=== PATIENT | male | born 1980 | race Caucasian/White ===

== ENCOUNTER 2016-11-09 07:00 | Inpatient (IN) | payer OTHER ==
--- NOTE | ~2016-11-09 | DS ---
Unit #: [id number] #: [id number] Patient: KARAN ATKINSON [id number] [facility] [address] [place] [address] [id number] MR#: [id number] NAME: KARAN ATKINSON. ROOM: P179 Age: 36 Sex: M Admission Date: 11/09/2016 : 1980 Discharge Date: 11/11/2016 Attending Physician: Geoff Poole M.D. Primary Care Physician: Primary Care Physician No DISCHARGE SUMMARY IDENTIFYING DATA Mr. Atkinson is a 36-year-old white male, who was self-referred to the hospital. DISCHARGE DIAGNOSES Psychiatric: Bipolar disorder, most recent episode depressed, recurrent, moderate, without psychotic features. Opioid dependence, moderate. Methamphetamine dependence, moderate. Medical: None. Stressors: Moderate psychosocial stressors. HISTORY OF PRESENT ILLNESS Please see initial psychiatric evaluation for details. PAST PSYCHIATRIC HISTORY Please see initial psychiatric evaluation for details. PAST MEDICAL HISTORY Please see initial psychiatric evaluation for details. HOSPITAL COURSE The patient was admitted to the adult psychiatric and chemical dependency unit at [facility] and was oriented to the hospital environment. Routine p.r.n. medications were initiated, and once again, upon presentation, the patient was seen to be very agitated, irritable, aggressive, hostile, and inappropriate. However, he was started on the opioid detox protocol and was also started on Thorazine to help him with his agitation and aggression. However, he was seen to be showing very poor insight into his situation and was not cooperative with treatment recommendation and was not showing any motivation towards treatment and was very aggressive towards staff with abusive language and he was wanting to leave against medical advice and was not seen to be benefitting much from treatment and was denying suicidal ideations, intent or plan. He was not seen to be danger to self or anyone else, and as such, it was decided that he will be discharged and will continue treatment on an outpatient basis. DISCHARGE CONDITION Stable. PROGNOSIS Unit #: [id number] #: [id number] Patient: KARAN ATKINSON Guarded. Dictated by... Tank Palomo/ada TD: 11/21/2016 01:26 JOB #: [id number] DISCHARGE SUMMARY Page 1 of 1 X Geoff Poole MD DISCHARGE SUMMARY
--- NOTE | ~2016-11-09 | PN ---
Unit #: [id number] #: [id number] Patient: KARAN ATKINSON [id number] [facility] [address] [place] [address] [id number] I MR#: [id number] NAME: KARAN ATKINSON. ROOM: P179 Age: 36 Sex: M Admission Date: 11/09/2016 : 1980 Attending Physician: Geoff Poole M.D. Admitting Physician: Geoff Poole M.D. Primary Care Physician: Primary Care Physician Annelise CONNELLY PROGRESS NOTES DATE 11/11/2016 DISCUSSION Mr. Atkinson is a 36-year-old, white male with mood disorder, substance abuse who was seen today and chart was reviewed and case was discussed with the staff. He has been anxious (1) . he has been cooperative with treatment recommendations. He has been taking the medication and tolerating them fairly well. MENTAL STATUS EXAM Young white male who was casually dressed with fair personal hygiene, appears to be in no acute distress or discomfort. He was awake and alert on interaction with intact orientation. His mood was anxious with congruent affect. He denies any suicidal or homicidal ideation. Also, denies any auditory or visual hallucinations. His insight and judgement remains slightly impaired. TREATMENT PLAN 1. We will continue him on his current medications, level of precautions and treatment protocol. We will monitor his response and make further adjustments as needed. 2. We will continue to follow up. Dictated by... Tank Palomo/caleb TD: 11/12/2016 02:03 JOB #: [id number] Unit #: [id number] #: [id number] Patient: KARAN ATKINSON PROGRESS NOTES Page 1 of 1 X Geoff Poole MD PROGRESS NOTE
--- NOTE | ~2016-11-09 | PA ---
Unit #: [id number] #: [id number] Patient: KARAN BYERS [id number] [facility] [address] [place] [address] [id number] MR#: [id number] NAME: KARAN BYERS. ROOM: P179 Age: 36 Sex: M Admission Date: 11/09/2016 : 1980 Date of Assessment: 11/09/2016 Attending Physician: Geoff Poole M.D. Admitting Physician: Geoff Poole M.D. Primary Care Physician: Primary Care Physician No PSYCHIATRIC ASSESSMENT DATE OF SERVICE 11/09/2016, IDENTIFYING DATA Mr. Byers is a 36-year-old single white male, who is a resident of [place], [place], and is known to us from previous encounter and was transferred to us from [facility] Emergency Room. CHIEF COMPLAINT "IV heroin use and suicidal ideation." HISTORY OF PRESENT ILLNESS Mr. Byers is a 36-year-old white male with history of substance abuse and mood disorder, who presented to [facility] Emergency Room due to IV heroin use, suicidal ideations, paranoia, and depression and reported to ER staff that he felt like bugs and worms are coming out of his head "all the time for the past few years." He also reports auditory hallucination of a man talking to him and told the ER staff "I'm going to jump off the garage or walk in front of a car when we are done with this." He was seen to be unkempt, disheveled, disorganized with increasing depression, anxiety, agitation, irritability, paranoia, and delusional behavior as well as suicidal ideations with intent and plan and was seen to be a danger to self and others and as such, a recommendation for inpatient level of care for safety and stabilization was made and the patient was transferred to us. SUBSTANCE ABUSE HISTORY The patient reports a history of cannabis, opioids, methamphetamine, and benzodiazepine abuse, and reports that he has been using 1.5 g of IV heroin a day as well as using IV methamphetamine whenever he can get his hands on. PAST PSYCHIATRIC HISTORY The patient has had a [facility] and has a history of poor compliance with any form of outpatient treatment and once again has not been active in any treatment program, is not seeing a psychiatrist, and is not taking any psychotropic medications. PAST MEDICAL HISTORY Hepatitis C. ALLERGIES Unit #: [id number] #: [id number] Patient: KARAN BYERS No known medication allergies. CURRENT MEDICATIONS None. PERSONAL AND SOCIAL HISTORY A 36-year-old white male, who reports that he is single, unemployed, and essentially homeless and has poor social support system. MENTAL STATUS EXAMINATION Young white male, who was casually dressed with fair personal hygiene, appears to be in no acute distress or discomfort. He was awake and alert on interaction with intact orientation to time, place, and person. His mood was anxious and depressed with a congruent affect. His speech was slow and goal directed. He reports having suicidal ideations as well as auditory hallucinations and paranoid ideations. His insight and judgment remain significantly impaired. DIAGNOSTIC IMPRESSION Psychiatric: Major depressive disorder, recurrent, moderate, with psychosis; opioid dependence, moderate, in acute withdrawals; and methamphetamine dependence, moderate. Medical: Hepatitis C. Stressors: Moderate psychosocial stressors. TREATMENT PLAN 1. The patient has presented with a history of substance abuse and mood disorder and has been decompensating and will need inpatient hospitalization for detoxification, safety, and stabilization. We will start him back on his home medications and detox protocol will be initiated as well. 2. Supportive therapy was provided to the patient. 3. Safe, structured, and nourishing environment will be provided. ESTIMATED LENGTH OF STAY 4 to 5 days. ABILITY TO HELP SELF Limited. WILLINGNESS TO HELP SELF The patient appears to be willing to help self. STRENGTHS 1. Communicative. 2. Cooperative. PROBLEMS 1. Chronic chemical dependency. 2. Chronic dysphoric symptoms. 3. Poor social support system. DISCHARGE CRITERIA This will be contingent upon the patient's ability to go through detox without having any significant withdrawal symptoms as well as his ability to stay safe to himself and others, particularly after discharge from the hospital. Unit #: [id number] #: [id number] Patient: KARAN BYERS Dictated by... Tank Palomo/ada TD: 11/10/2016 13:56 JOB #: [id number] PSYCHIATRIC ASSESSMENT Page 1 of 1 X Geoff Poloe MD PSYCHIATRIC ASSESSMENT
--- NOTE | ~2016-11-09 | HP ---
Unit #: [id number] #: [id number] Patient: ERWIN BYERS [id number] [place] [address] [id number] I MR#: [id number] NAME: ERWIN BYERS. ROOM: P179 Age: 36 Sex: M Admission Date: 11/09/2016 : 1980 Attending Physician: Geoff Poole M.D. Admitting Physician: Geoff Poole M.D. Primary Care Physician: Primary Care Physician No HISTORY AND PHYSICAL HISTORY OF PRESENT ILLNESS Erwin is a 36-year-old male admitted on 11/09/2016 to [facility] for detox from heroin and Xanax. He also has been abusing ice and marijuana. Also has complaints of suicidal ideations reports he wants to be . PAST MEDICAL HISTORY Hepatitis C, withdrawal seizures and multiple kidney stones. PAST SURGICAL HISTORY Lithotripsy. SOCIAL HISTORY He smokes one pack of cigarettes daily. No alcohol use. He does report daily (1)___ use of heroin, ice, Xanax and marijuana. He is currently single and homeless. FAMILY HISTORY Noncontributory. REVIEW OF SYSTEMS CONSTITUTIONAL: No fever or chills. HEENT: Denies any sore throat, ear pain or runny nose. CARDIOVASCULAR: Denies chest pain, irregular heart rhythm or palpitations. CHEST: Denies shortness of breath or cough. No hemoptysis. GASTROINTESTINAL: Denies nausea, vomiting, diarrhea or chronic constipation. ENDOCRINE: Denies history of increased thirst or urination. No recent significant weight loss or gain. GENITOURINARY: Denies dysuria, frequency, or hematuria. SKIN: Denies any rashes. HEMATOLOGIC: Denies history of increased bleeding or bruising. MUSCULOSKELETAL: Denies any hot, swollen joints. No generalized muscle pain. NEUROLOGIC: Denies problems with vision or speech. No frequent, severe headaches. No numbness, tingling or weakness in any extremities. Denies loss of bladder or bowel control. CURRENT MEDICATIONS Please see medication reconciliation form in chart. ALLERGIES Unit #: [id number] #: [id number] Patient: ERWIN BYERS No known drug allergies. PHYSICAL EXAMINATION GENERAL: Alert, oriented, in no acute distress. VITAL SIGNS: Blood pressure 117/70, heart rate 99, respirations 15, temperature 97.6. SKIN: Warm and dry without rash or lesion. HEENT: Normocephalic. TMs not viewed. Oral and nasal passages clear. Conjunctivae clear. PERRLA. EOMs intact. NECK: Supple without lymphadenopathy or thyromegaly. HEART: Regular rate and rhythm without murmur. LUNGS: Clear. ABDOMEN: Soft, nontender, without masses or hepatosplenomegaly. : Not done. EXTREMITIES: No evidence of cyanosis, clubbing or edema. Moves all without focal deficit. NEUROLOGICAL: Grossly within normal limits. Cranial Nerves: II: Visual hummel are intact. III, IV AND : Extraocular movements are intact. Pupils are equal, round and reactive to light. V: Facial sensation is grossly normal. VII: Facial movements and expression are normal. VIII: Auditory acuity grossly intact. IX, X: Uvula is midline. Phonation is normal. XI: Patient shrugs shoulders and turns head normally. XII: Tongue protrudes in the midline. Sensory and Motor Function: Sensory and motor sensation is grossly normal. Motor: moves all extremities well. Coordination: Gait is normal. Deep Tendon Reflexes: Intact. IMPRESSION 1. Psychiatric admission. 2. Hepatitis C. 3. History Withdrawal seizures. 4. History of kidney stones. RECOMMENDATIONS Psychiatric, per psychiatrist. MEDICAL: I see no contraindications to participating in facility's activities. MEDICAL PROGNOSIS Good. MEDICAL CONDITION Stable. Dictated by... Pita Gilbert TD: 11/10/2016 02:59 JOB #: [id number] Unit #: [id number] #: [id number] Patient: ERWIN BYERS HISTORY AND PHYSICAL Page 1 of 1 X LILA ARAIZA APRN HISTORY AND PHYSICAL
[~2016-11-09 07:00] MED LIST: AL-MAG HYDROX-S30 M1 PO; BENTYL10 MG PO; CATAPRES0.1 M1 PO; FOLIC ACID1 MG PO; IBUPROFEN400 MG PO; IMODIUM2 MG PO; MAPAP325 M1 PO; MILK OF MAGNESIA PO; MULTI VITAMIN1 EACH PO; NEURONTIN600 MG PO; NICOTINE TRANSDE7 MG EXT; PHENERGAN25 MG; THIAMINE HCL100 MG PO; TRAZODONE HCL100 MG PO; ZOFRAN PO; ZYPREXA10 MG PO
[2016-11-10 09:30] LABS: BASOPHIL% 0.5 % (0-2.5); EOSINOPHIL# 0.4 X10e3 (0-0.7); EOSINOPHIL% 5.9 % (0.0-7.0); HEMATOCRIT 39.8 % (38.0-50.0); LYMPHOCYTE# 1.4 X10e3 (1.0-3.5); LYMPHOCYTE% 19.3 % (17.0-45.0); MEAN CELL VOLUME 80.9 FL (83-96); MEAN CORPUSCULAR HEMOGLOBIN 26.5 PG (28-34); MEAN CORPUSCULAR HGB CONC 32.7 g/dL (30-36); MEAN PLATELET VOLUME 7.6 FL (6.5-11.5); MONOCYTE# 0.8 X10e3 (0-1.0); MONOCYTE% 11.4 % (3.0-12.0); NEUTROPHIL# 4.4 X10e3 (1.5-7.1); NEUTROPHIL% 62.9 % (40-75); PLATELET COUNT 312 X10e3 (140-420); RED BLOOD COUNT 4.92 X10e (3.90-5.60); WHITE BLOOD COUNT 7.1 X10e3 (4.0-10.5)
[2016-11-10 09:46] LABS: DIFF IND NO
[2016-11-10 09:52] LABS: ALBUMIN SERUM 3.3 g/dL (3.5-5.0); BILIRUBIN,TOTAL 0.7 mg/dL (0.2-2.0); GLOM FILT RATE Estimated 95.1 mL/min (>60); PROTEIN TOTAL SERUM 6.8 g/dL (6.0-8.3)
== END 2016-11-11 13:00 | disposition left against medical advice (07) | DRG 885 ==
LOC: P1E 13:18
PROVIDERS: Psychiatry & Neurology Psychiatry
PROC: HZ2ZZZZ Detoxification Services for Substance Abuse Treatment (ICD-10-PCS; principal; 2016-11-09)
DX: F33.3 Major depressive disorder, recurrent, severe with psychotic symptoms (principal); F15.20 Other stimulant dependence, uncomplicated; R45.851 Suicidal ideations; F11.23 Opioid dependence with withdrawal; B19.20 Unspecified viral hepatitis C without hepatic coma; Z59.0 Homelessness; Z87.442 Personal history of urinary calculi; F17.210 Nicotine dependence, cigarettes, uncomplicated
CPT/HCPCS: 80053; 85025; 86592

== ENCOUNTER 2016-11-19 05:00 | Inpatient (IN) | payer OTHER ==
--- NOTE | ~2016-11-19 | A ---
[facility] Nutrition Therapy DATE: 11/21/16 Patient: KARAN Jin ZEESHAN Physician: ELOISE Address: NO PERMANENT ADDRESS Room/Bed: [address], Zip: [place] [address] Admit Date: 11/19/16 Date of : [birth year] Height: 5 8 Weight: 149 68.0388 NUTRITIONAL ASSESSMENT: REASON: UNINTENTIONAL WEIGHT LOSS PATIENT ADMITTED FOR SI AND POLYSUBSTANCE ABUSE PMH: HEP C, WITHDRAWAL SEIZURES Anthropometrics: HT: 5'8" WT: 150#, BMI: 2.8, %IBW: 97 Labs: NO NEW LABS AVAILABLE Meds: THORAZINE, DETOX PROTOCOL Assessment: PATIENT IS A 36 Y/O MALE ADMITTED FOR SI AND POLYSUBSTANCE ABUSE. PATIENT IS CURRENTLY UNEMPLOYED, HOMELESS, SMOKES 1/2 PPD, HAS DAILY HEROIN AND METH USE, AND OCCASIONAL MARIJUANA AND XANAX USE. PATIENT HAS A HX OF INPATIENT PSYCH HOSPITALIZATION AND HE WAS RECENTLY D/C'D FROM THIS FACILITY ON 09/11/16, WHICH HE LEFT AMA. PER NEEDS ASSESSMENT PATIENT STATED A POOR APPEITE WITH A 3# WEIGHT LOSS X LAST SEVERAL WEEKS, AND HE HAS ONLY BEEN SLEEPING AN AVG OF 3HRS/NIGHT. WEIGHT HX PER MEDITECH SHOWS NO WEIGHT CHANGE SINCE LAST ADMIT 2 WEEKS AGO, AND A 7# WEIGHT GAIN X 1 YEAR. NURSING REPORTS POOR PO INTAKES UPON ADMIT, BUT APPETITE HAS BEEN IMPROVING AND HE HAD GOOD PO INTAKES YESTERDAY. IT IS NOTED THAT PATIENT HAS BEEN REFUSING MEDS AT TIMES SINCE ADMIT, AND HE HAS BEEN DEMANDING, DISRUPTIVE, ENTITLED, AND HAS BEEN HAVING AGGRESSIVE BEHAVIORS. PATIENT IS ON A REGULAR DIET WITH NO CAFFEINE AND HE RECEIVES ENSURE TID. PATIENT'S BMI IS WITHIN A HEALTHY RANGE AND HE IS 97% OF HIS IBW. Dx: NO NUTRITION DX Intervention: REGULAR DIET, MEDS PER MD, DETOX, PSYCH Monitoring, Evaluation and Goals: 1. ADEQUATE PO INTAKES >50% OF MEALS 2. PREVENT, CORRECT MICRO/MACRO NUTRIENT DEFICIENCIES MONITOR: WEIGHTS, LABS, PO/FLUID INTAKES Recommendations: 1. CONTINUE REGULAR DIET TOLERATED. OFFER SNACKS BETWEEN MEALS. RECOMMEND TO DECREASE ENSURE TO QD OR BID D/T NO NUTRITIONAL NEED FOR INCREASED CALORIC INTAKES 2. ENCOURAGE ADEQUATE PO AND FLUID INTAKES [facility] Nutrition Therapy DATE: 11/21/16 Patient: KARAN Jin ZEESHAN Physician: ELOISE Address: NO PERMANENT ADDRESS Room/Bed: 12-1 [facility], [facility], Zip: [place] [address] Admit Date: 11/19/16 Date of : [birth year] Height: 5 8 Weight: [address] TO F/U PER PROTOCOL AND PRN R/T PATIENT NOT AT NUTRITIONAL RISK ATT Respectfully, ANDERS ORTIZ RD, LD [facility] cc: client file
--- NOTE | ~2016-11-19 | DS ---
Unit #: [id number] #: [id number] Patient: [facility]INSON [id number] [facility] [address] [place] [address] [id number] I MR#: [id number] NAME: KARAN ATKINSON. ROOM: P112 Age: 36 Sex: M Admission Date: 11/19/2016 : 1980 Discharge Date: 11/22/2016 Attending Physician: Geoff Poole M.D. Primary Care Physician: Lauren Hudson Aprn DISCHARGE SUMMARY IDENTIFYING DATA Mr. Atkinson is a 36-year-old single white male, who is a resident of [place], [place], and is known to us from previous encounter, was recently discharged from my care after he decided to leave against medical advice. However, he once again brought him back to the hospital as a transfer from [facility], where he presented with suicide attempt stating "I want to . I want to jump off a bridge." DISCHARGE DIAGNOSES Psychiatric: Bipolar disorder, most recent episode depressed, recurrent, moderate, without psychotic features; opioid dependence, moderate; methamphetamine dependence, moderate. Medical: None. Stressors: Moderate psychosocial stressors. HISTORY OF PRESENT ILLNESS Please see initial psychiatric evaluation for details. PAST PSYCHIATRIC HISTORY Please see initial psychiatric evaluation for details. PAST MEDICAL HISTORY Please see initial psychiatric evaluation for details. HOSPITAL COURSE The patient was [facility] and was oriented to the hospital environment. Routine p.r.n. medications were initiated, and he was started back on his home medications and detox protocol was initiated as he was basically not really interested in any other psychiatric treatment; however, initially he was seen to be just sleeping in his bed and he woke up and was demanding to be discharged from the hospital and was causing lot of disturbance, chaos, agitation, aggression, hostility, and had to be transferred to a different floor where he once again was causing disturbance, was poorly motivated towards treatment at all and was not interested in any treatment and was denying any suicidal ideations, intent, and plan and was not seen to be danger to self or anyone else and was demanding to be discharged from the hospital and was not meeting criteria for involuntary psychiatric hospitalization and as such, it was decided that he will be discharged home and will continue treatment on an outpatient basis. DISCHARGE MEDICATIONS None. Unit #: [id number] #: [id number] Patient: KARAN ATKINSON DISCHARGE CONDITION Stable. PROGNOSIS Guarded. Dictated by... Tank Palomo/ada TD: 11/22/2016 22:37 JOB #: [id number] DISCHARGE SUMMARY Page 1 of 1 X Geoff Poole MD X DISCHARGE SUMMARY
--- NOTE | ~2016-11-19 | CO ---
Unit #: [id number] #: [id number] Patient: ERWIN BYERS [id number] [facility] [address] [place] [address] [id number] MR#: [id number] NAME: ERWIN BYERS. ROOM: P112 Age: 36 Sex: M Admission Date: 11/19/2016 : 1980 Attending Physician: Geoff Poole M.D. Primary Care Physician: Lauren Hudson Aprn Consultation Date: 11/21/2016 CONSULTATION REPORT SUBJECTIVE Erwin is a 36-year-old with a long history of IV drug use. He is admitted with a large abscess along his right lateral forearm. The area is fluctuant and warm and tender. We started warm compresses and Cleocin 300 mg one p.o. t.i.d. If the patient is still in-house on 11/24/2016, we will plan to open and drain the abscess. If he is discharged, he knows to follow up with PCP/emergency room for I and D. Dictated by... Julián OrtizARudy. for Tank Melchor/ada TD: 11/25/2016 22:37 JOB #: [id number] CONSULTATION REPORT Page 1 of 1 X Juliette Lopez CONSULTATION REPORT
--- NOTE | ~2016-11-19 | HP ---
Unit #: [id number] #: [id number] Patient: ERWIN BYERS [id number] [facility] [address] [place] [address] [id number] MR#: [id number] NAME: ERWIN BYERS. ROOM: P214 Age: 36 Sex: M Admission Date: 11/19/2016 : 1980 Attending Physician: Geoff Poole M.D. Admitting Physician: Geoff Poole M.D. Primary Care Physician: Lauren Hudson Aprn HISTORY AND PHYSICAL Erwin is a 36 year old admitted to [address] [place] [address] because of his polysubstance abuse. He was just discharged from this facility after treatment for the same. Patient was seen and H and P dated 11/09/16 was reviewed. This is current. No changes. Please see H and P dated 11/09/16. Dictated by... Juliette Lopez PCynthiaARudy. for Tank Melchor/chang TD: 11/19/2016 23:26 JOB #: [id number] HISTORY AND PHYSICAL Page 1 of 1 X Juliette Lopez HISTORY AND PHYSICAL
--- NOTE | ~2016-11-19 | PN ---
Unit #: [id number] #: [id number] Patient: KARAN ATKINSON [id number] [facility] [address] [place] [address] [id number] MR#: [id number] NAME: KARAN ATKINSON. ROOM: P112 Age: 36 Sex: M Admission Date: 11/19/2016 : 1980 Attending Physician: Geoff Poole M.D. Admitting Physician: Geoff Poole M.D. Primary Care Physician: Lauren CONNELLY PROGRESS NOTES DATE 11/21/2016 DISCUSSION Mr. Atkinson is a 36-year-old, white male who was seen today and chart was reviewed and case was discussed with the staff. He remains agitated, irritable and once again had an explosive outburst yesterday and was cursing, yelling and screaming at staff members and continues to exhibit similar behavior and (1)___ each time he comes to the hospital. MENTAL STATUS EXAM Young white male who was casually dressed with fair personal hygiene, appears to be in no acute distress or discomfort. He was awake and alert on interaction with intact orientation. His mood was anxious with congruent affect. He denies any suicidal or homicidal ideation. His insight and judgement remains slightly impaired. TREATMENT PLAN 1. We will continue him on his current treatment protocol. We will monitor his response to the medication and make further adjustments as needed. 2. We will continue to follow up. Dictated by... Tank Palomo/caleb TD: 11/24/2016 02:10 JOB #: [id number] Unit #: [id number] #: [id number] Patient: KARAN ATKINSON PROGRESS NOTES Page 1 of 1 X Geoff Poole MD X PROGRESS NOTE
--- NOTE | ~2016-11-19 | PA ---
Unit #: [id number] #: [id number] Patient: KARAN ATKINSON [id number] [facility] [address] [place] [address] [id number] MR#: [id number] NAME: KARAN ATKINSON. ROOM: P214 Age: 36 Sex: M Admission Date: 11/19/2016 : 1980 Date of Assessment: 11/19/2016 Attending Physician: Geoff Poole M.D. Admitting Physician: Geoff Poole M.D. Primary Care Physician: Lauren Hudson Aprn PSYCHIATRIC ASSESSMENT DATE OF SERVICE 11/19/2016. IDENTIFYING DATA Mr. Atkinson is a 36-year-old single white male who is a resident of [place], [place] and is known to us from previous encounter and was recently discharged from our care after he decided to leave against medical advice, however, he once again brought himself back to the hospital as a transfer from [facility], where he presented with suicidal ideation. CHIEF COMPLAINT "I want to and I want to jump off a bridge." HISTORY OF PRESENT ILLNESS Mr. Atkinson is a 36-year-old white male with dual diagnosis of bipolar disorder and substance abuse and dependence, who usually presents with increasing agitation, hostility, and very volatile mood and behavior, and causes disturbance and chaos in the unit and refuses to cooperate much with treatment and is hostile and aggressive with staff and then he ends up leaving and does not follow up with any treatment recommendations outside of the hospital and that leads to rapid decompensation or rehospitalization and once again he was just discharged from my care a week ago and at that time he just decided to leave against medical advice and actually was causing so much disturbance and that request was honored. He now takes himself again to [facility] Emergency Room reporting suicidal ideation and wanting to and wanting to jump off the bridge and once again reports using methamphetamine and heroin on a daily basis, and ER nurse reported that the patient came to the ER complaining of weakness in the arms and legs in the triage and when informed that he will be discharged as they could not find any abnormality, he then reported having suicidal ideations and toxicology screen was done, but it is not available yet, though the patient did admit to using methamphetamine and heroin. There is a strong suspicion that the patient just comes to the hospital and emergency room and then wants to come here after no physical anomaly is found. He reports himself to be suicidal and then as he comes here, he is not interested in any treatment and just eats and sleeps and staff tries to encourage him to get up and go to therapy groups and to participate in treatment, he usually gets hostile, aggressive, and belligerent and then he ends up leaving against medical advice after sleeping and eating for a few days and as such, has not been able to have a good prognosis. Unit #: [id number] #: [id number] Patient: KARAN ATKINSON SUBSTANCE ABUSE HISTORY The patient reports history of alcohol, opioids, methamphetamine, and benzodiazepine abuse and dependence, and currently heroin and methamphetamine have been his drug of choice. PAST PSYCHIATRIC HISTORY The patient has had a history of multiple inpatient psychiatric hospitalizations and has been diagnosed and treated for mood disorder. He is supposed to be on medication, but has shown no interest in receiving treatment or following up on an outpatient basis. PAST MEDICAL HISTORY Hepatitis C. ALLERGIES No known medication allergies. PERSONAL AND SOCIAL HISTORY A 36-year-old white male who reports that he is single, unemployed, and homeless and has poor social support system. MENTAL STATUS EXAMINATION Young white male who was casually dressed with fair personal hygiene, appears to be in no acute distress or discomfort. His mood was anxious and depressed with a congruent affect. His speech was slow and restricted in content. His thought processes were disorganized with some looseness of associations and flight of ideas and suicidal ideations. His insight and judgment remain significantly impaired. DIAGNOSTIC IMPRESSION Psychiatric: Bipolar disorder, most recent episode depressed, recurrent, moderate, without psychotic features; opioid dependence, moderate; methamphetamine dependence, moderate. Medical: Hepatitis C. Stressors: Moderate psychosocial stressors. TREATMENT PLAN 1. The patient has presented with a history of substance abuse and mood disorder and has been decompensating and will need inpatient hospitalization for safety and stabilization. We will start him back on his home medications. We will adjust the medications and monitor response. 2. Supportive therapy was provided to the patient. ESTIMATED LENGTH OF STAY 5 to 7 days. ABILITY TO HELP SELF Limited. WILLINGNESS TO HELP SELF The patient appears to be willing to help self. STRENGTHS 1. Communicative. 2. Cooperative. PROBLEMS 1. Chronic dysphoric symptoms. 2. Poor social support system. Unit #: [id number] #: [id number] Patient: KARAN ATKINSON DISCHARGE CRITERIA This will be contingent upon the patient's ability to show resolution of his depression and anxiety and his ability to stay safe to himself, particularly after discharge from the hospital. Dictated by... Tank Palomo/ada TD: 11/20/2016 08:06 JOB #: [id number] PSYCHIATRIC ASSESSMENT Page 1 of 1 X Geoff Poole MD X PSYCHIATRIC ASSESSMENT
== END 2016-11-22 11:15 | disposition home or self-care (01) | DRG 885 ==
LOC: P2S 11:31 → P1S 11:31 → P2S 14:51 → P1S 11-20 15:22
PROC: HZ2ZZZZ Detoxification Services for Substance Abuse Treatment (ICD-10-PCS; principal; 2016-11-19)
DX: F31.32 Bipolar disorder, current episode depressed, moderate (principal); F11.20 Opioid dependence, uncomplicated; F15.20 Other stimulant dependence, uncomplicated; B19.20 Unspecified viral hepatitis C without hepatic coma; F41.9 Anxiety disorder, unspecified
CPT/HCPCS: J3230